=== PATIENT | male | born 1945 | race Caucasian/White ===

== ENCOUNTER 2020-09-20 08:09 | Outpatient (REF) | payer MEDICARE, SELFPAY ==
--- NOTE | 2020-09-20 | US_ITS ---
EXAMINATION: US ABDOMEN COMPLETE CLINICAL INFORMATION: Chronic hepatitis C. COMPARISON: Ultrasound abdomen complete 10/11/2018 and 10/12/2017. KUB 01/25/2010. CT abdomen 07/28/2008. TECHNIQUE: Real-time imaging of the abdominal viscera. FINDINGS: PANCREAS: Normal. ABDOMINAL AORTA: The abdominal aorta is of normal caliber. Atherosclerotic calcification of the distal abdominal aorta is noted. INFERIOR VENA CAVA: Visualized portions are normal. LIVER: The liver is coarse, heterogenous and echogenic without any focal lesion. No focal hepatic lesion. There is no intrahepatic biliary duct dilatation seen. GALLBLADDER: There is echogenic debris seen in the decubitus view. No echogenic stones seen. There is no evidence of polyps, wall thickening or pericholecystic fluid collection. The gallbladder is physiologically well distended. COMMON BILE DUCT: Normal in caliber measuring 0.3 cm in diameter. RIGHT KIDNEY: Normal. No hydronephrosis. No renal calculi or focal parenchymal lesions. The kidney measures 11.0 cm in maximum dimension. LEFT KIDNEY: No hydronephrosis or focal parenchymal lesions. The kidney measures 11.0 cm in maximum dimension. There is echogenic stone in midpole measuring 0.2 x 0.3 x 0.1 cm. SPLEEN: Normal. The spleen measures 10.5 cm in maximum dimension. FREE FLUID: None. US/US abdomen complete IMPRESSION: Coarse heterogeneous echogenic liver texture. No focal lesions seen. There is echogenic gallbladder debris in the decubitus view but no echogenic stones or wall thickening. Small echogenic nonobstructive stone midpole left kidney. Mild atherosclerotic changes distal abdominal aorta. No aneurysm seen.
[2020-09-20 11:12] LABS: MANUAL DIFF FLAG NO
[2020-09-20 11:22] LABS: Basophils Percent Auto 0.4 % (0-2); Eosinophils Absolute Auto 0.2 X10*3/uL (0.0-0.4); Eosinophils Percent Auto 2.4 % (0-4); Hematocrit 41.8 % (42-52); Hemoglobin 13.9 g/dl (14.0-18.0); Imm Gran Abs Auto 0.01 X10*3/uL (0.00-0.03); Imm Gran Pct Auto 0.1 % (0.0-0.4); Lymphocytes Absolute Auto 1.8 X10*3/uL (1.2-4.9); Lymphocytes Percent Auto 26.9 % (20-40); Mean Corpuscular HGB Conc 33.3 g/dl (31.0-36.0); Mean Corpuscular Hemoglobin 31.1 pg (27.0-33.0); Mean Corpuscular Volume 93.5 fL (80-98); Mean Platelet Volume 11.6 fL (9.4-12.4); Monocytes Absolute Auto 0.5 X10*3/uL (0.1-1.2); Monocytes Percent Auto 7.4 % (2-11); Neutrophils Absolute Auto 4.2 X10*3/uL (2.0-8.3); Neutrophils Percent Auto 62.8 % (45-73); Platelet Count 180 X10*3/uL (160-400); Red Blood Count 4.47 X10*6/uL (4.60-5.80); White Blood Count 6.7 X10*3/uL (4.8-10.8)
[2020-09-20 11:31] LABS: INTERNATIONAL NORM RATIO 1.1 (0.9-1.1)
[2020-09-20 11:42] LABS: Alanine Aminotransferase 10 U/L (0-40); Albumin Level 4.2 g/dL (3.5-5.0); Alkaline Phosphatase 51 U/L (39-117); Aspartate Amino Transferase 14 U/L (5-37); Bilirubin Direct 0.3 mg/dL (0.0-0.5); Bilirubin Total 0.6 mg/dL (0.0-1.0); Total Protein 6.8 g/dL (6.5-8.0)
[2020-09-21 12:57] LABS: Alpha Fetoprotein 1.9 ng/mL (<6.1)
[2020-11-07 12:07] LABS: HepC Viral Load <15 NOT DETECTED
[2020-11-07 12:08] LABS: HCV Log PCR <1.18 NOT DETECTED
== END 2020-09-20 08:10 | disposition home or self-care (01) ==
LOC: HO.HMGCX 08:09
PROVIDERS: PCP Internal Medicine; Visit Provider Internal Medicine
DX: B18.2 Chronic viral hepatitis C (principal)
CPT/HCPCS: 36415; 76700; 80076; 82105; 85025; 85610; 87522

== ENCOUNTER 2020-10-24 08:13 | Outpatient (REF) | payer MEDICARE, SELFPAY ==
[2020-10-24 11:06] LABS: MANUAL DIFF FLAG NO
[2020-10-24 11:08] LABS: Urine Cytology See Pathology rpt
[2020-10-24 11:20] LABS: Basophils Percent Auto 0.4 % (0-2); Eosinophils Absolute Auto 0.2 X10*3/uL (0.0-0.4); Eosinophils Percent Auto 2.8 % (0-4); Hematocrit 42.5 % (42-52); Hemoglobin 14.2 g/dl (14.0-18.0); Imm Gran Abs Auto 0.03 X10*3/uL (0.00-0.03); Imm Gran Pct Auto 0.4 % (0.0-0.4); Lymphocytes Absolute Auto 2.1 X10*3/uL (1.2-4.9); Lymphocytes Percent Auto 28.2 % (20-40); Mean Corpuscular HGB Conc 33.4 g/dl (31.0-36.0); Mean Corpuscular Hemoglobin 31.2 pg (27.0-33.0); Mean Corpuscular Volume 93.4 fL (80-98); Mean Platelet Volume 11.2 fL (9.4-12.4); Monocytes Absolute Auto 0.6 X10*3/uL (0.1-1.2); Monocytes Percent Auto 8.1 % (2-11); Neutrophils Absolute Auto 4.4 X10*3/uL (2.0-8.3); Neutrophils Percent Auto 60.1 % (45-73); Platelet Count 184 X10*3/uL (160-400); Red Blood Count 4.55 X10*6/uL (4.60-5.80); White Blood Count 7.3 X10*3/uL (4.8-10.8)
[2020-10-24 11:24] LABS: Glucose Urine UA NEG (NEG); Leukocyte Esterase Urine NEG (NEG); Nitrite Urine NEG (NEG); Specific Gravity - Urine 1.015 (1.005-1.025); Urine Blood NEG (NEG); Urine Ketones NEG (NEG); Urine Protein NEG (NEG-TRACE)
[2020-10-24 11:25] LABS: Appearance Urine CLEAR; Color Urine YELLOW
[2020-10-24 11:56] LABS: Alanine Aminotransferase 11 U/L (0-40); Albumin Level 4.3 g/dL (3.5-5.0); Alkaline Phosphatase 49 U/L (39-117); Anion Gap 11 (12-20); Aspartate Amino Transferase 18 U/L (5-37); Bilirubin Total 0.8 mg/dL (0.0-1.0); Blood Urea Nitrogen 12 mg/dL (9-16); Calcium 9.1 mg/dL (8.4-10.2); Carbon Dioxide 30 mmol/L (22-29); Chloride 101 mmol/L (96-108); Estimated Glomerular Filt Rate > 60; Glucose Random 94 mg/dL (60-115); Potassium 4.6 mmol/L (3.3-5.1); Sodium 137 mmol/L (135-145); Total Protein 7.1 g/dL (6.5-8.0)
[2020-10-24 12:00] LABS: Prostate Specific Antigen 0.88 ng/mL (<0.05-4.0); Vitamin D 25-OH Total 30.7 ng/mL (>30)
== END 2020-10-24 08:14 | disposition home or self-care (01) ==
LOC: HO.HMGCLDS 08:13
PROVIDERS: PCP Internal Medicine; Visit Provider Internal Medicine
DX: I10 Essential (primary) hypertension (principal); R35.0 Frequency of micturition; E55.9 Vitamin D deficiency, unspecified; Z12.5 Encounter for screening for malignant neoplasm of prostate
CPT/HCPCS: 36415; 80053; 81003; 82306; 84153; 85025

== ENCOUNTER 2020-12-19 11:07 | Outpatient (REF) | payer MEDICARE, SELFPAY ==
[2020-12-23 09:23] LABS: Testosterone, Total 308 ng/dL (250-1100)
== END 2020-12-19 11:08 | disposition home or self-care (01) ==
LOC: HO.HMGCLDS 11:07
PROVIDERS: PCP Internal Medicine; Visit Provider Urology
DX: E29.1 Testicular hypofunction (principal)
CPT/HCPCS: 36415; 84403

== ENCOUNTER → 2021-01-15 09:31 | Outpatient (BNVA) | payer MEDICARE, SELFPAY | PROVIDERS: PCP Internal Medicine; Visit Provider Urology | DX: E29.1 Testicular hypofunction (principal); N40.1 Benign prostatic hyperplasia with lower urinary tract symptoms; N52.9 Male erectile dysfunction, unspecified | CPT/HCPCS: Q3014 ==

== ENCOUNTER 2021-01-31 10:54 | Outpatient (REF) | payer MEDICARE, SELFPAY ==
--- NOTE | ~2021-01-31 | US_ITS ---
EXAMINATION: US PELVIS LIMITED (BLADDER) CLINICAL INFORMATION: Poor urinary stream. COMPARISON: X-ray abdomen KUB 01/25/2010. TECHNIQUE: Real-time imaging of the bladder. FINDINGS: BLADDER: Well distended and normal. Bilateral ureteral jets are demonstrated. Prevoid bladder volume is 389 mL. Postvoid bladder volume is 24.2 mL. Enlarged prostate, 6.3 x 4.1 x 4.7 cm, volume 64.1 mL. US/US bladder IMPRESSION: Normal bladder ultrasound. Slightly enlarged prostate gland.
== END 2021-01-31 10:55 | disposition home or self-care (01) ==
LOC: HO.US 10:54
PROVIDERS: Visit Provider Urology
DX: R39.12 Poor urinary stream (principal); N40.1 Benign prostatic hyperplasia with lower urinary tract symptoms
CPT/HCPCS: 76857

== ENCOUNTER 2021-09-25 14:00 | Outpatient (RCR) | payer MEDICARE, SELFPAY ==
--- NOTE | 2021-08-14 17:27 | MHC.PT.EP ---
[facility] [place] [facility] [place] [facility] [place] [facility] [address] Radha Nolan [address] [phone] F: [phone] F: [phone] F: [phone] F: [phone] Physical Therapy Plan of Care Date of Evaluation: Date of Surgery: N/A Diagnosis: leg weakness Assessment: pt w/ negative neurological testing. Symptoms appear to be muscular in nature. pt presents to physical therapy with pain, decreased range of motion, decreased strength, impaired functional mobility, impaired postural awareness, and gait deviations. pt is a good candidate for skilled PT due to age, potential remediation of impairments, typical disease/condition progression and prognosis, comorbidities, and motivation. pt would benefit from tailored strengthening and stretching exercise program, functional training, gait training, postural re-training, neuromuscular re-education, modalities as needed for pain, equipment safety demonstration. Frequency and Duration: The patient will be seen 2x/wk for 4 wks Short Term Goals: pt will be I w/ HEP to promote self-management of condition. pt will improve B hip extension by 1 MMT grade to promote ease in standing from squat position. Surgery Assistant Goals: pt will report a statistically significant improvement in self-reported outcome measure, LEFI, to promote return to PLOF. Treatment Plan: Modalities to reduce pain, spasms and effusion. Manual therapy to restore motion and function. Therapeutic exercise to improve strength and flexibility. Neuromuscular re-education for posture and balance. Therapeutic activities to return to functional activities of daily living. Electronically signed by: Nel Marin PT, DPT Please sign and return to therapist. Thank you for your referral.
--- NOTE | 2021-09-30 15:52 | MHC.PT.DC ---
[facility] [place] [facility] [place] [facility] [place] [facility] [address] Radha Nolan [address] [facility] [phone] F: [phone] F: [phone] F: [phone] F: [phone] Physical Therapy Discharge Report Diagnosis: leg weakness Date of Surgery: N/A Date of Evaluation: 08/14/21 Date of Discharge: 09/30/21 Treatments to Date: 7 Cancellations to Date: 0 No Shows to Date: 0 Discharge Status: Improved Function Independent with HEP Discharge Summary: The patient reported he will be away for the next 4 weeks which is longer than we will be able to keep his chart open so today will be his last visit. He has made significant progress in regards to his ability to tolerate higher level strengthening exercises. At this time I recommended he continue with his home exercise program and told him he would benefit from going to a gym to maintain his gains. He is discharged from this physical therapy plan of care to his home exercise program. Electronically signed by: Nel Marin PT, DPT Please sign and return to therapist. Thank you for your referral.
== END 2021-09-30 15:52 | disposition home or self-care (01) ==
LOC: HO.PT 14:00
PROVIDERS: PCP Internal Medicine; Visit Provider Psychiatry & Neurology Neurology
DX: M62.81 Muscle weakness (generalized) (principal)
CPT/HCPCS: 97110; 97150; 97161; 97530

== ENCOUNTER 2022-03-19 07:13 | Outpatient (REF) | payer MEDICARE, SELFPAY ==
[2022-03-19 08:36] LABS: Basophils Percent Auto 0.4 % (0-2); Eosinophils Absolute Auto 0.2 X10*3/uL (0.0-0.4); Eosinophils Percent Auto 2.9 % (0-4); Hematocrit 41.9 % (42.0-52.0); Hemoglobin 14.2 g/dl (14.0-18.0); Imm Gran Abs Auto 0.02 X10*3/uL (0.00-0.03); Imm Gran Pct Auto 0.3 % (0.0-0.4); Lymphocytes Absolute Auto 2.2 X10*3/uL (1.2-4.9); Lymphocytes Percent Auto 31.1 % (20-40); MANUAL DIFF FLAG SCAN; Mean Corpuscular HGB Conc 33.9 g/dl (31.0-36.0); Mean Corpuscular Hemoglobin 30.8 pg (27.0-33.0); Mean Corpuscular Volume 90.9 fL (80.0-98.0); Mean Platelet Volume 12.1 fL (9.4-12.4); Monocytes Absolute Auto 0.6 X10*3/uL (0.1-1.2); Monocytes Percent Auto 9.1 % (2-11); Neutrophils Absolute Auto 3.9 x10*3/uL (2.0-8.3); Neutrophils Percent Auto 56.2 % (45-73); PLT CLUMP 1; Red Blood Count 4.61 X10*6/uL (4.60-5.80); Red Cell Distribution Width 12.3 % (11.0-16.0); SCAN SMEAR FLAG 1
[2022-03-19 08:56] LABS: Alanine Aminotransferase 11 U/L (0-40); Albumin Level 4.2 g/dL (3.5-5.0); Alkaline Phosphatase 44 U/L (39-117); Anion Gap 11 (12-20); Aspartate Amino Transferase 17 U/L (5-37); Bilirubin Total 0.6 mg/dL (0.0-1.0); Blood Urea Nitrogen 15 mg/dL (9-16); Calcium 9.1 mg/dL (8.4-10.2); Carbon Dioxide 25 mmol/L (22-29); Chloride 105 mmol/L (96-108); Cholesterol 158 mg/dL; Estimated Glomerular Filt Rate > 60; Glucose Fasting 93 mg/dL (60-99); HDL Cholesterol 53 mg/dL; LDL Cholesterol Calculated 93 mg/dl; Potassium 4.7 mmol/L (3.3-5.1); Sodium 136 mmol/L (135-145); Triglycerides 64 mg/dL
[2022-03-19 08:59] LABS: White Blood Count 6.9 X10*3/uL (4.8-10.8)
[2022-03-19 09:00] LABS: Platelet Count 95 X10*3/uL (160-400)
[2022-03-19 09:18] LABS: Thyroid Stimulating Hormone 2.16 uIU/mL (0.32-4.0); Vitamin D 25-OH Total 32.1 ng/mL (>30)
[2022-03-19 12:05] LABS: SLIDE REVIEW VERIFIED
== END 2022-03-19 07:14 | disposition home or self-care (01) ==
LOC: HO.LAB 07:13
PROVIDERS: PCP Internal Medicine; Visit Provider Internal Medicine
DX: I10 Essential (primary) hypertension (principal); R35.0 Frequency of micturition; E55.9 Vitamin D deficiency, unspecified
CPT/HCPCS: 36415; 80053; 80061; 82306; 84443; 85025

== ENCOUNTER 2022-03-27 07:33 | Outpatient (REF) | payer MEDICARE, SELFPAY ==
[2022-03-27 07:46] LABS: MANUAL DIFF FLAG NO
[2022-03-27 07:59] LABS: Basophils Percent Auto 0.6 % (0-2); Eosinophils Absolute Auto 0.2 X10*3/uL (0.0-0.4); Eosinophils Percent Auto 2.8 % (0-4); Hematocrit 41.4 % (42.0-52.0); Imm Gran Abs Auto 0.03 X10*3/uL (0.00-0.03); Imm Gran Pct Auto 0.4 % (0.0-0.4); Lymphocytes Absolute Auto 2.5 X10*3/uL (1.2-4.9); Lymphocytes Percent Auto 34.1 % (20-40); Mean Corpuscular HGB Conc 33.8 g/dl (31.0-36.0); Mean Corpuscular Volume 91.8 fL (80.0-98.0); Mean Platelet Volume 10.1 fL (9.4-12.4); Monocytes Absolute Auto 0.7 X10*3/uL (0.1-1.2); Monocytes Percent Auto 9.2 % (2-11); Neutrophils Absolute Auto 3.8 x10*3/uL (2.0-8.3); Neutrophils Percent Auto 52.9 % (45-73); Platelet Count 175 X10*3/uL (160-400); Red Blood Count 4.51 X10*6/uL (4.60-5.80); Red Cell Distribution Width 12.2 % (11.0-16.0); White Blood Count 7.2 X10*3/uL (4.8-10.8)
== END 2022-03-27 07:34 | disposition home or self-care (01) ==
LOC: HO.LAB 07:33
PROVIDERS: PCP Internal Medicine; Visit Provider Internal Medicine
DX: D69.6 Thrombocytopenia, unspecified (principal)
CPT/HCPCS: 36415; 85025

== ENCOUNTER 2022-10-08 07:18 | Outpatient (REF) | payer MEDICARE, SELFPAY ==
[2022-10-08 07:29] LABS: MANUAL DIFF FLAG NO
[2022-10-08 08:20] LABS: Basophils Percent Auto 0.5 % (0-2); Eosinophils Absolute Auto 0.2 X10*3/uL (0.0-0.4); Eosinophils Percent Auto 2.8 % (0-4); Hematocrit 43.5 % (42.0-52.0); Hemoglobin 14.5 g/dl (14.0-18.0); Imm Gran Abs Auto 0.04 X10*3/uL (0.00-0.03); Imm Gran Pct Auto 0.7 % (0.0-0.4); Lymphocytes Absolute Auto 2.2 X10*3/uL (1.2-4.9); Lymphocytes Percent Auto 36.4 % (20-40); Mean Corpuscular HGB Conc 33.3 g/dl (31.0-36.0); Mean Corpuscular Hemoglobin 30.5 pg (27.0-33.0); Mean Corpuscular Volume 91.4 fL (80.0-98.0); Mean Platelet Volume 10.2 fL (9.4-12.4); Monocytes Absolute Auto 0.5 X10*3/uL (0.1-1.2); Monocytes Percent Auto 8.3 % (2-11); Neutrophils Absolute Auto 3.1 x10*3/uL (2.0-8.3); Neutrophils Percent Auto 51.3 % (45-73); Platelet Count 199 X10*3/uL (160-400); Red Blood Count 4.76 X10*6/uL (4.60-5.80); Red Cell Distribution Width 12.1 % (11.0-16.0)
[2022-10-08 08:25] LABS: Alanine Aminotransferase 13 U/L (0-40); Albumin Level 4.3 g/dL (3.5-5.0); Alkaline Phosphatase 50 U/L (39-117); Anion Gap 15 (12-20); Aspartate Amino Transferase 17 U/L (5-37); Bilirubin Total 0.9 mg/dL (0.0-1.0); Blood Urea Nitrogen 16 mg/dL (9-16); Calcium 9.5 mg/dL (8.4-10.2); Carbon Dioxide 29 mmol/L (22-29); Chloride 102 mmol/L (96-108); Estimated Glomerular Filt Rate > 60; Glucose Random 105 mg/dL (60-115); Potassium 4.5 mmol/L (3.3-5.1); Sodium 141 mmol/L (135-145); Total Protein 7.3 g/dL (6.5-8.0)
== END 2022-10-08 07:19 | disposition home or self-care (01) ==
LOC: HO.LAB 07:18
PROVIDERS: PCP Internal Medicine; Visit Provider Internal Medicine
DX: I10 Essential (primary) hypertension (principal); R35.0 Frequency of micturition; E55.9 Vitamin D deficiency, unspecified
CPT/HCPCS: 36415; 80053; 85025

== ENCOUNTER 2022-11-12 13:59 | Outpatient (REF) | payer MEDICARE, SELFPAY ==
[2022-11-14 15:33] LABS: HCV Log PCR <1.18 NOT DETECTED Log IU/mL (NOT DETECTED); HepC Viral Load <15 NOT DETECTED IU/mL (NOT DETECTED)
== END 2022-11-12 14:00 | disposition home or self-care (01) ==
LOC: HO.LAB 13:59
PROVIDERS: PCP Internal Medicine; Visit Provider Internal Medicine
DX: B18.2 Chronic viral hepatitis C (principal)
CPT/HCPCS: 36415; 82105; 87522

== ENCOUNTER 2022-12-25 08:14 | Outpatient (REF) | payer MEDICARE, SELFPAY ==
--- NOTE | ~2022-12-25 | US_ITS ---
EXAMINATION: US COMPLETE ABDOMEN WITH LIVER ELASTOGRAPHY CLINICAL INFORMATION: Chronic hepatitis see COMPARISON: Previous abdominal ultrasound September 2013 TECHNIQUE: Real-time imaging of the abdominal viscera. Noninvasive ultrasound liver fibrosis assessment is performed using Jose Elast[employer] point quantification shear wave elastography (2D-SWE) with a C5-2 MHz transducer. Multiple elastography samples are obtained. FINDINGS: PANCREAS: Normal. ABDOMINAL AORTA: Atherosclerotic disease. The proximal, middle, and distal aortic segments are normal in caliber. INFERIOR VENA CAVA: Visualized portions are normal. LIVER: Liver echotexture is slightly increased. Liver is heterogeneous. Findings are suggestive of hepatocellular disease. No focal lesion or intrahepatic biliary duct dilatation. The right lobe measures 14 cm in length. The left lobe measures 8 cm in length. Portal flow is normal/hepatopedal Shear wave liver elastography median stiffness is 2 m/s (reference: normal median stiffness is 1.3 m/s or less). IQR/median stiffness to assess sampling precision is 0.11 (reference: good quality data set is IQR/median stiffness of 0.15 or less). GALLBLADDER: Normal. The gallbladder is physiologically distended without evidence of stones, sludge, polyps, wall thickening or pericholecystic fluid. COMMON BILE DUCT: Normal in caliber measuring 0.6 cm in diameter. RIGHT KIDNEY: Normal. No hydronephrosis. No renal calculi or focal parenchymal lesions. The kidney measures 10 cm in maximum dimension. LEFT KIDNEY: Normal. No hydronephrosis. No renal calculi or focal parenchymal lesions. The kidney measures 10 cm in maximum dimension. SPLEEN: Normal. The spleen measures 10 cm in maximum dimension. FREE FLUID: None. US/US abdomen comp w elastography IMPRESSION: 1. Impression: slightly echogenic heterogeneous liver suggestive of hepatocellular. No focal lesion. 2. Liver elastography: Adequate liver sampling increased liver stiffness suggestive of compensated advanced chronic liver disease. REFERENCE: Society of Radiologists in Ultrasound Liver Stiffness Thresholds (2020): LIVER STIFFNESS THRESHOLDS: *Liver Stiffness equal or less than 1.3 m/s: High probability of being normal. *Liver Stiffness less than 1.7 m/s: In the absence of other known clinical signs, rules out compensated advanced chronic liver disease. *Liver Stiffness 1.7-2.1 m/s: Suggestive of compensated advanced chronic liver disease but need further test for confirmation. *Liver Stiffness over 2.1 m/s: Rules in compensated advanced chronic liver disease. *Liver Stiffness over 2.4 m/s: Suggestive of clinically significant portal hypertension. QUALITY OF DATA SET: *IQR/Median value equal or less than 0.15 implies a quality data set. *IQR/Median value over 0.15 implies a poor quality data set. SIGNIFICANT CHANGE FROM PRIOR EXAM: Significant change if liver stiffness measurement is 10% or greater from prior exam. OTHER CONSIDERATIONS: The stage of liver fibrosis may be overestimated in the setting of acute hepatitis, liver inflammation, elevated liver function tests, hepatic vascular congestion, obstructive cholestasis, non-fasting state, and infiltrative diseases such as amyloidosis and lymphoma. In some patients with NAFLD, the liver stiffness thresholds for compensated advanced chronic liver disease may be lower. In causes other than viral hepatitis and NAFLD, liver stiffness thresholds are not well established.
== END 2022-12-25 08:15 | disposition home or self-care (01) ==
LOC: HO.US 08:14
PROVIDERS: PCP Internal Medicine; Visit Provider Internal Medicine
DX: B18.2 Chronic viral hepatitis C (principal)
CPT/HCPCS: 76705; 76981

== ENCOUNTER 2024-01-11 06:49 | Outpatient (REF) | payer MEDICARE, SELFPAY ==
[2024-01-11 07:11] LABS: MANUAL DIFF FLAG NO
[2024-01-11 07:53] LABS: Basophils Percent Auto 0.5 % (0-2); Eosinophils Absolute Auto 0.2 X10*3/uL (0.0-0.4); Eosinophils Percent Auto 2.9 % (0-4); Hematocrit 39.7 % (42.0-52.0); Hemoglobin 13.7 g/dl (14.0-18.0); Imm Gran Abs Auto 0.02 X10*3/uL (0.00-0.03); Imm Gran Pct Auto 0.3 % (0.0-0.4); Lymphocytes Absolute Auto 2.1 X10*3/uL (1.2-4.9); Lymphocytes Percent Auto 35.7 % (20-40); Mean Corpuscular HGB Conc 34.5 g/dl (31.0-36.0); Mean Corpuscular Hemoglobin 31.1 pg (27.0-33.0); Mean Platelet Volume 10.4 fL (9.4-12.4); Monocytes Absolute Auto 0.6 X10*3/uL (0.1-1.2); Monocytes Percent Auto 9.6 % (2-11); Platelet Count 154 X10*3/uL (160-400); Red Blood Count 4.41 X10*6/uL (4.60-5.80); Red Cell Distribution Width 12.6 % (11.0-16.0)
[2024-01-11 08:41] LABS: PSA,Total (Free>4and<10) 1.22 ng/mL (0.00-4.00)
[2024-01-11 08:42] LABS: Microalbumin Urine < 5.0 mg/L
[2024-01-11 08:44] LABS: Alanine Aminotransferase 21 U/L (0-40); Albumin Level 4.2 g/dL (3.5-5.0); Alkaline Phosphatase 41 U/L (39-117); Anion Gap 12 (12-20); Aspartate Amino Transferase 24 U/L (5-37); Bilirubin Total 0.6 mg/dL (0.0-1.0); Blood Urea Nitrogen 14 mg/dL (9-16); Calcium 9.9 mg/dL (8.4-10.2); Carbon Dioxide 25 mmol/L (22-29); Chloride 107 mmol/L (96-108); Cholesterol 152 mg/dL (<200); Estimated Glomerular Filt Rate > 60; Glucose Fasting 97 mg/dL (60-99); HDL Cholesterol 53 mg/dL (>40); LDL Cholesterol Calculated 88 mg/dL (<100); Potassium 4.3 mmol/L (3.3-5.1); Sodium 140 mmol/L (135-145); Total Protein 7.3 g/dL (6.5-8.0); Triglycerides 55 mg/dL (<150)
[2024-01-11 08:45] LABS: Thyroid Stimulating Hormone 2.25 uIU/mL (0.32-4.0); Vitamin D 25-OH Total 35.3 ng/mL (>30)
[2024-01-11 09:16] LABS: Appearance Urine Clear; Color Urine Yellow; Glucose Urine UA Negative (Negative); Leukocyte Esterase Urine Negative (Negative); Nitrite Urine Negative (Negative); PH 6.5 (5.0-9.0); Urine Blood Negative (Negative); Urine Ketones Negative (Negative); Urine Protein Negative (Neg-Trace)
== END 2024-01-11 06:50 | disposition home or self-care (01) ==
LOC: HO.LAB 06:49
PROVIDERS: PCP Internal Medicine; Visit Provider Internal Medicine
DX: I10 Essential (primary) hypertension (principal); R35.0 Frequency of micturition; E55.9 Vitamin D deficiency, unspecified; Z12.5 Encounter for screening for malignant neoplasm of prostate
CPT/HCPCS: 36415; 80053; 80061; 81003; 82043; 82306; 82570; 84153; 84443; 85025

== ENCOUNTER 2024-02-20 08:21 | Outpatient (REF) | payer MEDICARE, SELFPAY ==
[2024-02-20 10:23] LABS: Prostate Specific Antigen 1.19 ng/mL (<0.05-4.0)
== END 2024-02-20 08:22 | disposition home or self-care (01) ==
LOC: HO.LAB 08:21
PROVIDERS: PCP Internal Medicine; Visit Provider Physician Assistant Surgical
DX: R97.20 Elevated prostate specific antigen [PSA] (principal); Z12.5 Encounter for screening for malignant neoplasm of prostate
CPT/HCPCS: 36415; 84153

== ENCOUNTER 2024-03-17 11:36 | Outpatient (REF) | payer MEDICARE, SELFPAY ==
[2024-03-18 12:43] LABS: Alpha Fetoprotein 2.5 ng/mL (<6.1)
[2024-03-19 14:58] LABS: HCV Log PCR <1.18 NOT DETECTED Log IU/mL (NOT DETECTED); HepC Viral Load <15 NOT DETECTED IU/mL (NOT DETECTED)
[2024-03-26 18:19] LABS: FIB-ALT 15 U/L (9-46); FIB-Alpha-2-Macroglobulin 319 mg/dL (106-279); FIB-Apolipoprotein A1 160 mg/dL (94-176); FIB-GGT 13 U/L (3-70); FIB-Haptoglobin 98 mg/dL (43-212); FIB-Total Bilirubin 0.4 mg/dL (0.2-1.2); Liver Fibrosis Score 0.47; Liver Fibrosis Stage F1-F2; Nec Inflam Act Grade A0; Nec Inflam Act Score 0.06
== END 2024-03-17 11:37 | disposition home or self-care (01) ==
LOC: HO.LAB 11:36
PROVIDERS: PCP Internal Medicine; Visit Provider Internal Medicine
DX: K74.00 Hepatic fibrosis, unspecified (principal); B18.2 Chronic viral hepatitis C
CPT/HCPCS: 36415; 81596; 82105; 87522

== ENCOUNTER 2024-03-21 08:25 | Outpatient (REF) | payer MEDICARE, SELFPAY ==
--- NOTE | ~2024-03-21 | US_ITS ---
EXAMINATION: US COMPLETE ABDOMEN WITH LIVER ELASTOGRAPHY CLINICAL INFORMATION: Chronic hepatitis C; liver fibrosis. COMPARISON: None available. TECHNIQUE: Real-time imaging of the abdominal viscera. Noninvasive ultrasound liver fibrosis assessment is performed using Jose ElastPQ point quantification shear wave elastography (2D-SWE) with a C5-2 MHz transducer. Multiple elastography samples are obtained. FINDINGS: PANCREAS: Limited. The visualized pancreatic head and body are normal in appearance. The remainder of the pancreas is obscured from visualization by the overlying bowel gas. ABDOMINAL AORTA: The proximal, middle, and distal aortic segments are normal in caliber. There are diffuse atherosclerotic calcifications. INFERIOR VENA CAVA: Visualized portions are normal. LIVER: The liver demonstrates normal size, contour and echogenicity. No focal lesion or intrahepatic biliary duct dilatation. The right lobe measures 15.3 cm in length. The left lobe measures 8.1 cm in length. Portal flow is towards the liver (hepatopetal). Shear wave liver elastography median stiffness is 1.80 m/s (reference: normal median stiffness is 1.3 m/s or less). IQR/median stiffness to assess sampling precision is 0.08 (reference: good quality data set is IQR/median stiffness of 0.15 or less). GALLBLADDER: Normal. The gallbladder is physiologically distended without evidence of stones, sludge, polyps, wall thickening or pericholecystic fluid. COMMON BILE DUCT: Normal in caliber measuring 0.4 cm in diameter. RIGHT KIDNEY: Normal. No hydronephrosis. No renal calculi or focal parenchymal lesions. The kidney measures 10.8 cm in maximum dimension. LEFT KIDNEY: Normal. No hydronephrosis. No renal calculi or focal parenchymal lesions. The kidney measures 10.7 cm in maximum dimension. SPLEEN: Normal. The spleen measures 9.5 cm in maximum dimension. FREE FLUID: None. US/US abdomen comp w elastography IMPRESSION: 1. There is mild increase in hepatic echotexture, consistent with fatty infiltration or hepatocellular disease. Please correlate clinically. No focal hepatic mass or intrahepatic biliary dilatation is seen. 2. Liver elastography: Measurements are suggestive of compensated advanced chronic liver disease but need further test for confirmation. When compared with prior exam, there is a statistically significant decrease in liver stiffness (decrease at least 10%). REFERENCE: Society of Radiologists in Ultrasound Liver Stiffness Thresholds (2020): LIVER STIFFNESS THRESHOLDS: *Liver Stiffness equal or less than 1.3 m/s: High probability of being normal. *Liver Stiffness less than 1.7 m/s: In the absence of other known clinical signs, rules out compensated advanced chronic liver disease. *Liver Stiffness 1.7-2.1 m/s: Suggestive of compensated advanced chronic liver disease but need further test for confirmation. *Liver Stiffness over 2.1 m/s: Rules in compensated advanced chronic liver disease. *Liver Stiffness over 2.4 m/s: Suggestive of clinically significant portal hypertension. QUALITY OF DATA SET: *IQR/Median value equal or less than 0.15 implies a quality data set. *IQR/Median value over 0.15 implies a poor quality data set. SIGNIFICANT CHANGE FROM PRIOR EXAM: Significant change if liver stiffness measurement is 10% or greater from prior exam. OTHER CONSIDERATIONS: The stage of liver fibrosis may be overestimated in the setting of acute hepatitis, liver inflammation, elevated liver function tests, hepatic vascular congestion, obstructive cholestasis, non-fasting state, and infiltrative diseases such as amyloidosis and lymphoma. In some patients with NAFLD, the liver stiffness thresholds for compensated advanced chronic liver disease may be lower. In causes other than viral hepatitis and NAFLD, liver stiffness thresholds are not well established.
== END 2024-03-21 08:26 | disposition home or self-care (01) ==
LOC: HO.US 08:25
PROVIDERS: PCP Internal Medicine; Visit Provider Internal Medicine
DX: B18.2 Chronic viral hepatitis C (principal); K74.00 Hepatic fibrosis, unspecified
CPT/HCPCS: 76700; 76981

== ENCOUNTER 2024-07-16 10:02 | Outpatient (REF) | payer MEDICARE, SELFPAY ==
[2024-07-16 10:13] LABS: MANUAL DIFF FLAG NO
[2024-07-16 10:40] LABS: Basophils Percent Auto 0.6 % (0-2); Eosinophils Absolute Auto 0.2 X10*3/uL (0.0-0.4); Eosinophils Percent Auto 2.8 % (0-4); Hemoglobin 13.8 g/dl (14.0-18.0); Imm Gran Abs Auto 0.01 X10*3/uL (0.00-0.03); Imm Gran Pct Auto 0.1 % (0.0-0.4); Lymphocytes Absolute Auto 2.2 X10*3/uL (1.2-4.9); Lymphocytes Percent Auto 29.8 % (20-40); Mean Corpuscular HGB Conc 34.5 g/dl (31.0-36.0); Mean Corpuscular Hemoglobin 31.7 pg (27.0-33.0); Mean Corpuscular Volume 91.7 fL (80.0-98.0); Mean Platelet Volume 10.4 fL (9.4-12.4); Monocytes Absolute Auto 0.7 X10*3/uL (0.1-1.2); Monocytes Percent Auto 9.4 % (2-11); Neutrophils Absolute Auto 4.2 x10*3/uL (2.0-8.3); Neutrophils Percent Auto 57.3 % (45-73); Platelet Count 176 X10*3/uL (160-400); Red Blood Count 4.36 X10*6/uL (4.60-5.80); Red Cell Distribution Width 12.2 % (11.0-16.0); White Blood Count 7.3 X10*3/uL (4.8-10.8)
== END 2024-07-16 10:03 | disposition home or self-care (01) ==
LOC: HO.LAB 10:02
PROVIDERS: PCP Internal Medicine; Visit Provider Internal Medicine
DX: I10 Essential (primary) hypertension (principal)
CPT/HCPCS: 36415; 85025

== ENCOUNTER 2024-10-19 11:00 | Outpatient (RCR) | payer MEDICARE, SELFPAY | END 2024-11-17 10:49 | disposition home or self-care (01) | LOC: HO.PTCHIC 11:00 | PROVIDERS: PCP Internal Medicine; Visit Provider Internal Medicine | DX: S16.1XXD Strain of muscle, fascia and tendon at neck level, subsequent encounter (principal) | CPT/HCPCS: 97110; 97140; 97161 ==

== ENCOUNTER 2025-01-31 13:39 | Outpatient (AMB) | payer MEDICARE, SELFPAY ==
--- NOTE | 2025-01-31 13:45 | MHC.PC.OV ---
Vital Signs 01/31/25 13:47 Weight 152 lb BP 138/80 Blood Pressure Location Rt brachial Pulse 65 Pulse Source Pulse Oximeter Temp 97.5 F Pulse Oximetry (%) 97 Intake Visit Reasons: 6 month follow up Intake Note: Hard time when he gets down on the floor and to get up, lower back hurts and feels sleep all the time or when he tries to read something he finds himself falling asleep. Allergies No Known Allergies [No Known Allergies*] Allergy (Unknown, Verified 01/31/25 15:28) Medication List - Last Reconciled 01/31/25 by Claudine Maya PA-C amlodipine 5 mg PO DAILY aspirin 81 mg PO DAILY cholecalciferol (vitamin D3) 50 mcg PO DAILY losartan 100 mg PO DAILY [id number] mcg (Centrum Silver Men) 1 tab PO DAILY naproxen 500 mg PO BID naproxen 500 mg PO BID sulfacetamide sodium 10% 1 drp ophthalmic (eye) Q4H tadalafil (Cialis) 20 mg PO DAILY tamsulosin 0.8 mg (2 x 0.4 mg) PO DAILY valsartan 160 mg PO DAILY HPI 6 month follow up HPI Details The patient is a 79-year-old male presenting with bilateral leg weakness during his six-month follow-up appointment and establishment of care. The patient's leg weakness has progressively worsened over the past year, with symptoms initially appearing three years ago. He can walk and stand without difficulty but requires assistance to rise from the floor, denying the use of mobility aids such as walkers or canes. He does not report falls, numbness, tingling, or dizziness. Although he mentions C2-C3 cervical arthrosis occasionally causing neck discomfort, it does not seem directly related to the leg weakness. Past consultations with a neurologist two years ago involved diagnostic testing and therapy for leg strength, and he continues with exercises focused on bone and balance maintenance. He maintains functional activity levels by participating in routine physical therapy sessions and engaging with his young grandson. The patient reports low energy levels manifesting as sleepiness during periods of rest rather than activity, and denies any familial history of neurodegenerative diseases. His medical history is noted with hypertension and chronic hepatitis C, now in remission. Additionally, there's a current management plan for urological incontinence, overseen by a urologist. There is no recent imaging of the spine or brain noted. Social History - The patient resides in a house likely with family given the mention of engaging with a grandson. - He maintains active participation in physical therapy twice a week at the [facility] focusing on balance and bones. - Engages in playful interaction with his [id number] grandson regularly. - Nutritional intake includes breakfast with oatmeal, flaxseed, amy seeds, shredded coconut, and almond milk, consumed routinely. - Blood pressure monitoring is a self-reported home practice, showing awareness and management of hypertension. [facility] Medical History (Updated 01/31/25 @ 16:14 by Claudine Maya PA-C) Urinary incontinence Anemia Establishing care with new doctor, encounter for Bilateral leg weakness Back pain Herpes zoster without complications Appendicitis Carcinoid (except of appendix) Chronic hepatitis HTN (hypertension) Hypogonadism in male Erectile dysfunction Other obstructive and reflux uropathy Benign prostatic hyperplasia with lower urinary tract symptoms Surgical History H/O right hemicolectomy H/O hernia repair [place] teeth removed History of appendectomy History of vasectomy History of surgery Questionnaire PHQ-9 Over the last 2 weeks, how often have you been bothered by any of the following problems? 1. Little interest or pleasure in doing things: not at all 2. Feeling down, depressed, or hopeless: not at all 3. Trouble falling or staying asleep, or sleeping too much: not at all 4. Feeling tired or having little energy: several days 5. Poor appetite or overeating: not at all 6. Feeling bad about yourself - or that you are a failure or have let yourself or your family down: not at all 7. Trouble concentrating on things, such as reading the newspaper or watching television: several days 8. Moving or speaking so slowly that other people could have noticed. Or the opposite - being so fidgety or restless that you have been moving around a lot more than usual: not at all 9. Thoughts that you would be better off or of hurting yourself in some way: not at all Total score: 2 Depression Screening Interpretation: Negative Depression Screening Done: Yes 73372 - PHQ-9 Billing: Yes Source: Developed by Drs. Luca Rhodes, Baylee Kemp, Jose Roberto Glass and colleagues, with an educational susie from [employer]. Thrive Questionnaire Date Thrive assessed: 01/31/25 I am a: Patient What is your living situation today?: I have a steady place to live Within the past 12 months, did the food you bought not last and you didn't have the money to get more?: Never true Within the past 12 months, did you worry whether your food would run out before you got money to buy more?: Never true Do you have trouble paying for medicines?: No Do you have trouble getting transportation to medical appointments?: No Do you have trouble paying your heating and electricity bill?: No Do you have trouble taking care of your child, family member or friend?: No Do you have trouble with day-to-day activities such as bathing, preparing meals, shopping, managing finances, etc.?: No Are you currently unemployed and looking for a job?: No Are you interested in more education?: No THRIVE Score: 0 AUDIT C Alcohol Use Questionnaire (AUDIT-C) 2. How many drinks containing alcohol do you have on a typical day when you are drinking?: 1 or 2 3. How often do you have six or more drinks on one occasion?: Never Total Score: 0 Score Reviewed/Action Taken: No MEL-7 AMB Questionnaire MEL-7 Date MEL - 7 assessed: 01/31/25 Feeling nervous, anxious, or on edge: 0 = Not at all Not being able to stop or control worryin = Not at all Worrying too much about different things: 0 = Not at all Trouble relaxin = Not at all Being so restless that it is hard to sit still: 0 = Not at all Becoming easily annoyed or irritable: 1 = Several days Feeling afraid as if something awful might happen: 0 = Not at all Total MEL-7 score (0-4 normal; 5-9 mild; 10-14 moderate; 15-21 severe): 1 Source: Developed by Drs. Luca Rhodes, Baylee Kemp, Jose Roberto Glass and colleagues, with an educational susie from [employer]. MEL-7 Assessment Billing MEL-7 Assessment Tool: MEL-7 Assessment 89608 Review of Systems Const Details: - Musculoskeletal: Reports bilateral leg weakness. - Neurological: Denies falls, numbness, tingling, and dizziness. - Cardiovascular: Denies chest pain and shortness of breath. - Gastrointestinal: Denies belly pain and involuntary urination or defecation. - General: Reports sleepiness during periods of rest. Physical exam (Primary Care) Vital Signs: Last Vital Signs Temp 97.5 F 01/31/25 13:47 Pulse 65 01/31/25 13:47 BP 142/64 H 01/31/25 13:47 Pulse Ox 97 01/31/25 13:47 Care Plan Goal for BP management: <140/90 at Goal PHQ-9: PHQ-9 Score PHQ-9: Total score 2 01/31/25 13:58 Depression Screening Interpretation: Negative Thrive Assessment: Date of Thrive Assessment Date Thrive assessed 01/31/25 01/31/25 13:58 Const Other: Appearance: Alert. Oriented X3. No acute distress. Head: Normal external exam. Normocephalic. Atraumatic. Eyes: Pupils are equal, round, and reactive to light. Extraocular movements intact. Conjunctiva and sclera normal. Eyelids normal. Ears: External auditory canal normal. Tympanic membranes normal. Throat: Pharynx normal. Uvula midline. Moist mucous membranes. Neck: Normal inspection. Neck supple. Full range of motion. No adenopathy. Thyroid Normal. No meningeal signs. No neck mass noted. Cardiovascular: Normal heart rate and rhythm. Heart sound normal. No murmurs noted. Pulses normal throughout. Blood pressure recorded as 138/80. Respiratory: No respiratory distress. Painless inspiration. Breath sounds normal. No wheezes/rales/rhonchi noted. Chest nontender. No accessory muscle usage noted or decreased air movement noted. Abdomen: Soft and nontender. Bowel sounds normal in all 4 quadrants. No distention noted. No organomegaly noted. No visible injury noted. Back: No costovertebral angle tenderness. Full range of motion noted. Reports occasional pain associated with president financial institution syndrome. Skin: Skin warm and dry. Normal skin color. Normal skin turgor. No rashes/lesions/lacerations noted. Extremities: No lower extremity edema. Extremities exhibit normal range of motion. Extremities nontender. Reports bilateral leg weakness, especially when getting up from the floor. Neuro: Oriented X 3. No motor deficit. No sensory deficit. Reflexes normal. Reports weakness in both legs, especially when getting up from the floor. Although no obvious weakness on exam he has 5/5 strength throughout to bilateral lower extremities and upper extremities. Normal sensation throughout. No numbness or tingling noted. Reports C2-C3 arthritis. Normal steady gait. Results Reviewed Results Reviewed: - Labs: None discussed during this visit; previous history notes anemia. - Tests: Previous neurology assessment with EMG testing for leg weakness. Coding Level of Care Code New Pt Level 4 (37915) Complex EM visit Add On G2211 Diagnoses Establishing care with new doctor, encounter for Z76.89 HTN (hypertension) I10 Bilateral leg weakness R29.898 Back pain M54.9 Erectile dysfunction N52.9 Anemia D64.9 Urinary incontinence R32 Additional Codes PHQ-9 - 43364 - PHQ-9 Billing: Yes ([id number]) MEL-7 Assessment Billing - MEL-7 Assessment Tool: MEL-7 Assessment 69410 ([id number]) Assessment & Plan Assessment & Plan (1) Establishing care with new doctor, encounter for: Code(s): Z76.89 - Persons encountering health services in other specified circumstances Category: Medical (2) HTN (hypertension): Code(s): I10 - Essential (primary) hypertension Category: Medical Plan: Patient to continue amlodipine 5 mg daily, aspirin 81 mg daily, losartan 100 mg daily, valsartan 160 mg daily. Continue home monitoring and medication. Follow-up for consistent control. (3) Bilateral leg weakness: Code(s): R29.898 - Other symptoms and signs involving the musculoskeletal system Category: Medical Plan: Conduct MRI of the lumbar spine to identify underlying causes. Continue physical therapy. Order blood work including metabolic panels and hormone levels. Patient has a normal neuro exam. Condition is chronic and stable will continue to monitor. (4) Back pain: Code(s): M54.9 - Dorsalgia, unspecified Category: Medical Plan: Will order MRI of lumbar spine to identify the underlying causes. Continue physical therapy. Patient has a normal neuro exam. Condition is chronic and stable continue to monitor. (5) Erectile dysfunction: Code(s): N52.9 - Male erectile dysfunction, unspecified Category: Medical Plan: Patient to continue Cialis. Condition is chronic and stable continue to monitor. (6) Anemia: Code(s): D64.9 - Anemia, unspecified Category: Medical Plan: Repeat iron studies and CBC to rule out anemia as a fatigue factor. (7) Urinary incontinence: Code(s): R32 - Unspecified urinary incontinence Category: Medical Plan: Continue management with current regimen and follow-up care with urologist. Plan Plan Patient was informed and verbally consented to the use of an ambient scribe for clinic note documentation during this visit. 1. Bilateral Leg Weakness Conduct MRI of the lumbar spine to identify underlying causes. Continue physical therapy. Order blood work including metabolic panels and hormone levels. 2. C2-C3 Cervical Arthrosis Monitor symptoms and manage pain as needed. No imaging unless symptoms change. 3. Hypertension Continue home monitoring and medication. Follow-up for consistent control. 4. Urological Incontinence Continue management with current regimen and follow-up care with urologist. 5. History Of Anemia Repeat iron studies and CBC to rule out anemia as a fatigue factor. During the visit, I discussed the patient's recent concerns of worsening bilateral leg weakness. I informed him of the possibility of a spinal pathology and advised an MRI of the lumbar spine to further investigate. We discussed his continued participation in physical therapy and its importance for maintaining strength and balance. I also introduced the need for a comprehensive blood work panel to evaluate systemic contributors to his symptoms, including hormone levels and metabolic indices, to ascertain potential causes of fatigue. I reassured him that all medications for blood pressure and urological incontinence were being managed appropriately but suggested continued home blood pressure monitoring for optimal control. I outlined the next steps for imaging and testing and emphasized early follow-up should any blood work or MRI findings show abnormalities. Orders: Orders MR lumbar spine wo con Today M54.9 - Dorsalgia, unspecified, R29.898 - Other symptoms and signs involving the musculoskeletal system C Reactive Protein Today Z00.00 - Encounter for general adult medical examination without abnormal findings Complete Blood Count Auto Diff Today Z00.00 - Encounter for general adult medical examination without abnormal findings Comprehensive [place]. Panel Fast Today Z00.00 - Encounter for general adult medical examination without abnormal findings Magnesium Today Z00.00 - Encounter for general adult medical examination without abnormal findings Dihydrotestosterone Today Z00.00 - Encounter for general adult medical examination without abnormal findings Vitamin B12 and Folate Today Z00.00 - Encounter for general adult medical examination without abnormal findings Hemoglobin A1c Today Z00.00 - Encounter for general adult medical examination without abnormal findings Lipid Panel Today Z00.00 - Encounter for general adult medical examination without abnormal findings IRON PROFILE Today D64.9 - Anemia, unspecified DHEA Sulfate Today Z00.00 - Encounter for general adult medical examination without abnormal findings Vitamin D 25-OH Total Today Z00.00 - Encounter for general adult medical examination without abnormal findings Testosterone, Free/Total Today Z00.00 - Encounter for general adult medical examination without abnormal findings Testosterone, Total Today Z00.00 - Encounter for general adult medical examination without abnormal findings TSH reflex Free T4 Today Z00.00 - Encounter for general adult medical examination without abnormal findings PSA,Total (Free>4and<10) Today Z00.00 - Encounter for general adult medical examination without abnormal findings Liver Panel Today Z00.00 - Encounter for general adult medical examination without abnormal findings Ferritin Today D64.9 - Anemia, unspecified Medications: New naproxen 500 mg PO BID 30 tabs 1RF Patient Instructions: - Continue with physical therapy twice a week. - Schedule an MRI appointment when contacted. - Monitor blood pressure at home regularly. - Attend blood work fasting; can have water or black coffee without cream or sugar. - Follow up sooner if MRI or blood work results are abnormal. - Report any new or worsening symptoms promptly. - Follow dietary recommendations and maintain current healthy breakfast regimen.
[2025-01-31 13:47] VITALS: BP 138/80; PULSE 65; TEMP 36.4; O2SAT 97
== END 2025-01-31 14:27 | disposition home or self-care (01) ==
LOC: HO.HMCSH 13:40
PROVIDERS: PCP Internal Medicine; Visit Provider Physician Assistant Medical
DX: Z76.89 Persons encountering health services in other specified circumstances (principal); I10 Essential (primary) hypertension; R29.898 Other symptoms and signs involving the musculoskeletal system; M54.9 Dorsalgia, unspecified; N52.9 Male erectile dysfunction, unspecified; D64.9 Anemia, unspecified; R32 Unspecified urinary incontinence

== ENCOUNTER → 2025-01-31 13:39 | Outpatient (BNVA) | payer MEDICARE, SELFPAY | PROVIDERS: PCP Internal Medicine; Visit Provider Physician Assistant Medical | DX: I10 Essential (primary) hypertension (principal); M54.50 Low back pain, unspecified; R29.898 Other symptoms and signs involving the musculoskeletal system; R53.1 Weakness; N52.9 Male erectile dysfunction, unspecified; D64.9 Anemia, unspecified; R32 Unspecified urinary incontinence; Z76.89 Persons encountering health services in other specified circumstances | CPT/HCPCS: 96127; 99202 ==

== ENCOUNTER 2025-02-04 08:14 | Outpatient (REF) | payer MEDICARE, SELFPAY ==
[2025-02-04 08:31] LABS: MANUAL DIFF FLAG NO
[2025-02-04 09:36] LABS: Basophils Percent Auto 0.7 % (0-2); Eosinophils Absolute Auto 0.2 X10*3/uL (0.0-0.4); Eosinophils Percent Auto 3.3 % (0-4); Hematocrit 40.8 % (42.0-52.0); Hemoglobin 14.2 g/dl (14.0-18.0); Imm Gran Abs Auto 0.02 X10*3/uL (0.00-0.03); Imm Gran Pct Auto 0.3 % (0.0-0.4); Lymphocytes Percent Auto 32.5 % (20-40); Mean Corpuscular HGB Conc 34.8 g/dl (31.0-36.0); Mean Corpuscular Hemoglobin 31.6 pg (27.0-33.0); Mean Corpuscular Volume 90.9 fL (80.0-98.0); Mean Platelet Volume 10.8 fL (9.4-12.4); Monocytes Absolute Auto 0.6 X10*3/uL (0.1-1.2); Neutrophils Absolute Auto 3.3 x10*3/uL (2.0-8.3); Neutrophils Percent Auto 54.2 % (45-73); Platelet Count 173 X10*3/uL (160-400); Red Blood Count 4.49 X10*6/uL (4.60-5.80); Red Cell Distribution Width 12.3 % (11.0-16.0); White Blood Count 6.1 X10*3/uL (4.8-10.8)
[2025-02-04 09:52] LABS: Estimated Average Glucose 114 mg/dL; Hemoglobin A1c % 5.6 % (<6.0); Total Hemoglobin (HGBA1C) 3659.5922 umol/L
[2025-02-04 10:14] LABS: Alanine Aminotransferase 20 U/L (0-40); Albumin Level 4.3 g/dL (3.5-5.0); Alkaline Phosphatase 42 U/L (39-117); Anion Gap 11 (12-20); Aspartate Amino Transferase 23 U/L (5-37); Bilirubin Direct 0.3 mg/dL (0.0-0.5); Bilirubin Total 0.8 mg/dL (0.0-1.0); Blood Urea Nitrogen 17 mg/dL (9-16); C Reactive Protein 0.12 mg/dL (< or = 0.50); Calcium 9.3 mg/dL (8.4-10.2); Carbon Dioxide 26 mmol/L (22-29); Chloride 107 mmol/L (96-108); Cholesterol 160 mg/dL (<200); Estimated Glomerular Filt Rate > 60; Glucose Fasting 91 mg/dL (60-99); HDL Cholesterol 55 mg/dL (>40); Iron 183 mcg/dL (45-160); LDL Cholesterol Calculated 87 mg/dL (<100); Magnesium 2.1 mg/dL (1.6-2.6); Percent Iron Saturation 67 % (15-50); Potassium 4.1 mmol/L (3.3-5.1); Sodium 140 mmol/L (135-145); Total Iron Binding Capacity 275 mcg/dL (228-428); Total Protein 7.1 g/dL (6.5-8.0); Triglycerides 90 mg/dL (<150); Unsaturated Iron Binding 92 ug/dL
[2025-02-04 10:18] LABS: Ferritin 184 ng/mL (20-250); TSH reflex Free T4 1.37 uIU/mL (0.32-4.0); Vitamin D 25-OH Total 26.9 ng/mL (>30)
[2025-02-04 10:19] LABS: PSA,Total (Free>4and<10) 0.43 ng/mL (0.00-4.00)
[2025-02-04 10:33] LABS: Vitamin B12 479 pg/mL (200-900)
[2025-02-06 00:43] LABS: DHEA Sulfate 60 mcg/dL (3-225)
[2025-02-10 07:13] LABS: Dihydrotestosterone 6 ng/dL (12-65)
[2025-02-22 12:54] LABS: Testosterone, Total 366 ng/dL (250-1100)
== END 2025-02-04 08:15 | disposition home or self-care (01) ==
LOC: HO.LAB 08:14
PROVIDERS: PCP Internal Medicine; Visit Provider Physician Assistant Medical
DX: Z00.00 Encounter for general adult medical examination without abnormal findings (principal); D64.9 Anemia, unspecified; Z12.5 Encounter for screening for malignant neoplasm of prostate; Z13.1 Encounter for screening for diabetes mellitus; Z13.6 Encounter for screening for cardiovascular disorders
CPT/HCPCS: 36415; 80053; 80061; 80076; 82248; 82306; 82607; 82627; 82642; 82728; 82746; 83036; 83540; 83735; 84153; 84402; 84403; 84443; 85025; 86140

== ENCOUNTER 2025-02-15 18:50 | Outpatient (REF) | payer MEDICARE, SELFPAY ==
--- NOTE | ~2025-02-15 | MR_ITS ---
EXAMINATION: MR LUMBAR SPINE WITHOUT CONTRAST CLINICAL INFORMATION: Dorsalgia, unspecified. COMPARISON: None available. TECHNIQUE: MRI of the lumbar spine was obtained using routine sequences without contrast. FINDINGS: Last rib-bearing vertebra labeled T12. No bone marrow STIR signal abnormality. Multilevel disc desiccation and marginal osteophyte formation. Bone marrow inhomogeneity. The alignment is normal. Conus medullaris ends at inferior endplate of L1 with normal signal. T11-12: No disc herniation. No neuroforamina stenosis. T12-L1: Disc bulging. Facet joint hypertrophy. No compression upon neural elements. L1-2: Broad-based disc bulging. Facet joint hypertrophy. No compression upon neural elements. L2-3: Broad-based disc bulging. Facet joint hypertrophy. Reduced AP diameter of the thecal sac and neuroforamina. No compression upon neural elements. L3-4: Broad-based disc bulging. Facet joint and ligamentum flavum hypertrophy. Reduced AP diameter of the thecal sac and neuroforamina likely encroaching the neural elements. L4-5: Broad-based disc bulging. Facet joint and ligamentum flavum hypertrophy. Reduced AP diameter of the thecal sac and neuroforamina likely encroaching the neural elements. L5-S1: Broad-based disc bulging. Facet joint hypertrophy. No central spinal canal stenosis. Bilateral neuroforamina narrowing. No prevertebral compartment hematoma, mass or fluid collection. MR/MR lumbar spine wo con IMPRESSION: Multilevel lumbar spondylosis more pronounced at L3-4 and L4-5 levels and to a lesser extent L5-S1 encroaching the exiting nerve roots. Electronically signed by: Joseph Gamble MD 02/16/2025 07:13 AM EDT
== END 2025-02-15 18:51 | disposition home or self-care (01) ==
LOC: HO.MRI 18:50
PROVIDERS: PCP Physician Assistant Medical; Visit Provider Physician Assistant Medical
DX: M54.9 Dorsalgia, unspecified (principal); R29.898 Other symptoms and signs involving the musculoskeletal system
CPT/HCPCS: 72148

== ENCOUNTER → 2025-02-15 18:51 | Outpatient (BNV) | payer MEDICARE, SELFPAY | PROVIDERS: PCP Physician Assistant Medical; Visit Provider Radiology Diagnostic Radiology | DX: M47.896 Other spondylosis, lumbar region (principal) | CPT/HCPCS: 72148 ==

== ENCOUNTER 2025-02-23 07:44 | Outpatient (REF) | payer MEDICARE, SELFPAY ==
[2025-03-01 19:29] LABS: Testosterone, Total 411 ng/dL (250-1100)
== END 2025-02-23 07:45 | disposition home or self-care (01) ==
LOC: HO.LAB 07:44
PROVIDERS: PCP Physician Assistant Medical; Visit Provider Physician Assistant Medical
DX: Z00.00 Encounter for general adult medical examination without abnormal findings (principal)
CPT/HCPCS: 36415; 84402; 84403

== ENCOUNTER 2025-02-27 12:54 | Outpatient (AMB) | payer MEDICARE, SELFPAY ==
--- NOTE | 2025-02-27 13:00 | HO.SPINEOV ---
Intake Visit Reasons: lumbar radiculopathy Intake Note: Mr. Baez is here today c/o low back pain. 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 He is a very nice 79-year-old gentleman presents to the office today for evaluation of 1 year of pain reported in his lower thoracic area. He has been taking a leave periodically to help with the symptoms. It comes and goes but generally gets worse if he is doing something active like washing the dishes. Has no tingling or numbness going down his legs. He does report weakness however when he is trying to get up off the floor. He has to hold onto something to get vertical. He does have urinary urgency and frequency, having to geta up 3 or 4 times a night, but no kristian incontinence. He comes in today for evaluation with a lumbar MRI showing some degenerative disc disease. 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 History of appendectomy. Denies any history of cardiopulmonary disease, strokes, renal disease, blood clots bleeding disorders or cancer. Social hx: He does not smoke drink or use any recreational drugs Medications: Valsartan, baby aspirin, Flomax, vitamin-C Allergies: None Physical exam: Awake alert oriented no acute distress able to stand up out of a chair walk down the hallway, tandem gait testing reveals slight unsteadiness, Romberg test negative, strength is full bilaterally in the lower extremities, somewhat brisk reflexes in the lower extremities, 3+ at the patella and he did have a 2 beats of clonus in his left ankle. He has an upgoing toe on the left as well. Imaging review: Lumbar MRI done here at [place] shows just some very mild degenerative disc disease without any evidence of stenosis or compromise of the neural structures. Impression: 79-year-old male presents with lower thoracic pain in the midline of his spine, some urinary urgency and frequency especially at night, and clonus in his left ankle with an upgoing toe. His lumbar MRIs unremarkable in fact that looks great for his age. There are no compression of any neural elements this. I am going to look up into his thoracic spine a little more closely just because of the physical exam findings in the complaints of urinary urgency. He has no upper extremity symptoms to report so I do not think a cervical MRI as necessary. Thank you for allowing us to care for your patient. The total time spent with this visit with this patient was 45 minutes reviewing history, physical exam, lumbar imaging review, and implementation of treatment plan or further diagnostic testing Rene Paris MD,PhD [facility] Orders: Orders MR thoracic spine wo con Today M54.9 - Dorsalgia, unspecified Coding Level of Care Code New Pt Level 4 (23579) Diagnoses Back pain M54.9
== END 2025-02-27 13:50 | disposition home or self-care (01) ==
LOC: HO.HNS 12:55
PROVIDERS: PCP Physician Assistant Medical; Visit Provider Physician Assistant
DX: M54.9 Dorsalgia, unspecified (principal)
CPT/HCPCS: 99204

== ENCOUNTER → 2025-02-27 12:54 | Outpatient (BNVA) | payer MEDICARE, SELFPAY | PROVIDERS: PCP Physician Assistant Medical; Visit Provider Physician Assistant | DX: M54.9 Dorsalgia, unspecified (principal) | CPT/HCPCS: 99202 ==

== ENCOUNTER 2025-03-08 13:44 | Outpatient (REF) | payer MEDICARE, SELFPAY ==
[2025-03-08 14:33] LABS: Alanine Aminotransferase 17 U/L (0-40); Albumin Level 4.5 g/dL (3.5-5.0); Alkaline Phosphatase 50 U/L (39-117); Aspartate Amino Transferase 21 U/L (5-37); Total Protein 7.2 g/dL (6.5-8.0)
[2025-03-08 15:07] LABS: Prostate Specific Antigen 0.98 ng/mL (<0.05-4.0)
[2025-03-17 03:42] LABS: FIB-ALT 13 U/L (9-46); FIB-Alpha-2-Macroglobulin 322 mg/dL (106-279); FIB-Apolipoprotein A1 177 mg/dL (94-176); FIB-GGT 12 U/L (3-70); FIB-Haptoglobin 94 mg/dL (43-212); FIB-Total Bilirubin 0.4 mg/dL (0.2-1.2); Liver Fibrosis Score 0.43; Liver Fibrosis Stage F1-F2; Nec Inflam Act Grade A0; Nec Inflam Act Score 0.05
== END 2025-03-08 13:45 | disposition home or self-care (01) ==
LOC: HO.LAB 13:44
PROVIDERS: Absent Provider Physician Assistant; PCP Physician Assistant Medical; Visit Provider Internal Medicine
DX: B18.2 Chronic viral hepatitis C (principal); K74.00 Hepatic fibrosis, unspecified
CPT/HCPCS: 36415; 80076; 81596; 82105; 84153

== ENCOUNTER 2025-03-21 14:16 | Outpatient (REF) | payer MEDICARE, SELFPAY ==
--- NOTE | ~2025-03-21 | MR_ITS ---
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 Additional syrinx noted from inferior T7 to T8-9 disc space. Study was performed without intravenous contrast. No cause of syrinx is identified. Recommend repeat study with IV contrast to assess the cord. Multilevel mild degenerative changes noted. No significant canal or neural foraminal narrowing. No acute bony signal abnormalities identified. Bone marrow heterogeneity is nonspecific finding. This can be seen with anemia as well as pulmonary disease. No significant bone marrow edema is identified. Posterior bony alignment is normal. 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
== END 2025-03-21 14:17 | disposition home or self-care (01) ==
LOC: HO.MRI 14:16
PROVIDERS: Visit Provider Physician Assistant
DX: M54.9 Dorsalgia, unspecified (principal)
CPT/HCPCS: 72146

== ENCOUNTER → 2025-03-21 14:33 | Outpatient (BNV) | payer MEDICARE, SELFPAY | PROVIDERS: Visit Provider Radiology Diagnostic Radiology | DX: M54.9 Dorsalgia, unspecified (principal) | CPT/HCPCS: 72146 ==

== ENCOUNTER 2025-04-05 15:15 | Outpatient (AMB) | payer MEDICARE, SELFPAY ==
--- NOTE | 2025-04-05 16:10 | A.SPINEOV_ITS ---
Intake Visit Reasons: discuss MRI Intake Note: Mr. Baez is here today to Discuss the results to his MRI. 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 His thoracic MRI shows that he has evidence of 2 syrinx in his thoracic cord. There does not appear to be any displacement of the spinal cord and there is no cord signal change. He does however have trouble walking, numbness and bladder issues with signs of hyperreflexia in the lower extremities. I reviewed the case with Dr. Paris. As per the radiologist request we are going to get studies with gadolinium, and we will also scan his cervical spine to rule out a Chiari malformation or other associated cervical cord syrinx as well as these can be commonly seen in conjunction with thoracic. Total amount of time spent in this visit was 20 minutes in discussion of symptoms, thoracic imaging results and subsequent plan of care Rene Paris MD,PhD [facility] Orders: Orders MR thoracic spine wo/w con Today G95.0 - Syringomyelia and syringobulbia MR cervical spine wo/w con Today G95.0 - Syringomyelia and syringobulbia Coding Level of Care Code Est Pt Level 3 (11642) Diagnoses Syrinx G95.0
== END 2025-04-05 16:52 | disposition home or self-care (01) ==
LOC: HO.HNS 15:15
PROVIDERS: Visit Provider Physician Assistant
DX: G95.0 Syringomyelia and syringobulbia (principal)
CPT/HCPCS: 99213

== ENCOUNTER → 2025-04-05 15:15 | Outpatient (BNVA) | payer MEDICARE, SELFPAY | PROVIDERS: Visit Provider Physician Assistant | DX: Z71.2 Person consulting for explanation of examination or test findings (principal); G95.0 Syringomyelia and syringobulbia | CPT/HCPCS: 99212 ==

== ENCOUNTER 2025-04-27 09:55 | Outpatient (REF) | payer MEDICARE, SELFPAY ==
--- NOTE | ~2025-04-27 | US_ITS ---
EXAMINATION: US COMPLETE ABDOMEN WITH LIVER ELASTOGRAPHY CLINICAL INFORMATION: Hepatitis C, hepatic fibrosis COMPARISON: March 21, 2024 TECHNIQUE: Real-time imaging of the abdominal viscera. Noninvasive ultrasound liver fibrosis assessment is performed using Jose Elast[employer] point quantification shear wave elastography (pSWE) with a C5-2 MHz transducer. Multiple elastography samples are obtained. FINDINGS: PANCREAS: The visualized pancreatic head and body are normal in appearance. The remainder of the pancreas is obscured from visualization by the overlying bowel gas. ABDOMINAL AORTA: No aortic aneurysm is seen. INFERIOR VENA CAVA: Visualized portions are normal. LIVER: The liver demonstrates a mildly coarse echotexture. No focal lesion or intrahepatic biliary duct dilatation. The right lobe measures 13 cm in length. The left lobe measures 9 cm in length. Portal flow is present in a normal direction with a continuous venous waveform. Shear wave liver elastography median stiffness is 1.5 m/s (reference: normal median stiffness is 1.3 m/s or less). IQR/median stiffness to assess sampling precision is 0.12 (reference: good quality data set is IQR/median stiffness of 0.15 or less). GALLBLADDER: The gallbladder is physiologically distended without evidence of stones, sludge, polyps, wall thickening or pericholecystic fluid. COMMON BILE DUCT: Normal in caliber measuring 0.4 cm in diameter. RIGHT KIDNEY: No hydronephrosis. No renal calculi or focal parenchymal lesions. The kidney measures 10 cm in maximum dimension. LEFT KIDNEY: No hydronephrosis. No renal calculi or focal parenchymal lesions. The kidney measures 10 cm in maximum dimension. SPLEEN: Unremarkable. The spleen measures 9 cm in maximum dimension. FREE FLUID: None seen. US/US abdomen comp w elastography IMPRESSION: Mildly coarse echotexture of the liver is consistent with mild fatty changes or hepatocellular disease. Liver elastography: Measurements are suggestive of compensated advanced chronic liver disease but need further test for confirmation. When compared with prior exam, there is a statistically significant decrease in liver stiffness (decrease at least 10%). REFERENCE: Society of [employer]iologists in Ultrasound Liver Stiffness Thresholds (2019): LIVER STIFFNESS THRESHOLDS: *Liver Stiffness equal or less than 1.3 m/s: High probability of being normal. *Liver Stiffness less than 1.7 m/s: In the absence of other known clinical signs, rules out compensated advanced chronic liver disease. *Liver Stiffness 1.7-2.1 m/s: Suggestive of compensated advanced chronic liver disease but need further test for confirmation. *Liver Stiffness over 2.1 m/s: Rules in compensated advanced chronic liver disease. *Liver Stiffness over 2.4 m/s: Suggestive of clinically significant portal hypertension. QUALITY OF DATA SET: *IQR/Median value equal or less than 0.15 implies a quality data set. *IQR/Median value over 0.15 implies a poor quality data set. SIGNIFICANT CHANGE FROM PRIOR EXAM: Significant change if liver stiffness measurement is 10% or greater from prior exam. OTHER CONSIDERATIONS: The stage of liver fibrosis may be overestimated in the setting of acute hepatitis, liver inflammation, elevated liver function tests, hepatic vascular congestion, obstructive cholestasis, non-fasting state, and infiltrative diseases such as amyloidosis and lymphoma. In some patients with NAFLD, the liver stiffness thresholds for compensated advanced chronic liver disease may be lower. In causes other than viral hepatitis and NAFLD, liver stiffness thresholds are not well established. Electronically signed by: Marco Maldonado MD 04/27/2025 10:51 AM EDT
[2025-04-27 15:35] LABS: MANUAL DIFF FLAG NO
[2025-04-27 15:48] LABS: Hematocrit 40.8 % (42.0-52.0); Hemoglobin 14.1 g/dl (14.0-18.0); Imm Gran Abs Auto 0.02 X10*3/uL (0.00-0.03); Imm Gran Pct Auto 0.2 % (0.0-0.4); Lymphocytes Absolute Auto 2.1 X10*3/uL (1.2-4.9); Mean Corpuscular HGB Conc 34.6 g/dl (31.0-36.0); Mean Corpuscular Hemoglobin 31.6 pg (27.0-33.0); Mean Corpuscular Volume 91.5 fL (80.0-98.0); NRBC Abs Auto 0.000 X10*3/uL (0.0-0.012); NRBC Pct Auto 0.0 /100WBC (0.0-0.2); Platelet Count 157 X10*3/uL (160-400); Red Blood Count 4.46 X10*6/uL (4.60-5.80); White Blood Count 8.1 X10*3/uL (4.8-10.8)
[2025-04-27 16:11] LABS: Alanine Aminotransferase 16 U/L (0-40); Albumin Level 4.3 g/dL (3.5-5.0); Alkaline Phosphatase 42 U/L (39-117); Anion Gap 11 (12-20); Aspartate Amino Transferase 22 U/L (5-37); Blood Urea Nitrogen 20 mg/dL (9-16); Calcium 9.2 mg/dL (8.4-10.2); Carbon Dioxide 28 mmol/L (22-29); Chloride 104 mmol/L (96-108); Estimated Glomerular Filt Rate > 60; Iron 100 mcg/dL (45-160); Percent Iron Saturation 40 % (15-50); Potassium 4.5 mmol/L (3.3-5.1); Sodium 138 mmol/L (135-145); Total Iron Binding Capacity 248 mcg/dL (228-428); Total Protein 6.9 g/dL (6.5-8.0); Unsaturated Iron Binding 148 ug/dL
[2025-04-27 16:25] LABS: Ferritin 139 ng/mL (20-250)
== END 2025-04-27 09:56 | disposition home or self-care (01) ==
LOC: HO.US 09:55
PROVIDERS: Internal Medicine Medical Oncology; Visit Provider Internal Medicine
DX: E83.19 Other disorders of iron metabolism (principal); B18.2 Chronic viral hepatitis C; K74.00 Hepatic fibrosis, unspecified
CPT/HCPCS: 36415; 76700; 76981; 80053; 82728; 83540; 85025

== ENCOUNTER → 2025-04-27 10:05 | Outpatient (BNV) | payer MEDICARE, SELFPAY | PROVIDERS: Visit Provider Radiology Diagnostic Radiology | DX: B18.2 Chronic viral hepatitis C (principal); K74.00 Hepatic fibrosis, unspecified | CPT/HCPCS: 76700 ==

== ENCOUNTER → 2025-04-27 13:00 | Outpatient (BNV) | payer MEDICARE, SELFPAY | PROVIDERS: Visit Provider Internal Medicine Medical Oncology | DX: Z86.39 Personal history of other endocrine, nutritional and metabolic disease (principal) | CPT/HCPCS: 99213 ==

== ENCOUNTER → 2025-05-12 17:49 | Outpatient (BNV) | payer MEDICARE, SELFPAY | PROVIDERS: Visit Provider Radiology Diagnostic Radiology | DX: M47.812 Spondylosis without myelopathy or radiculopathy, cervical region (principal); M48.02 Spinal stenosis, cervical region; M47.814 Spondylosis without myelopathy or radiculopathy, thoracic region | CPT/HCPCS: 72156; 72157 ==

== ENCOUNTER 2025-05-12 17:51 | Outpatient (REF) | payer MEDICARE, SELFPAY ==
--- NOTE | ~2025-05-12 | MR_ITS ---
EXAMINATION: MR THORACIC SPINE WITHOUT AND WITH CONTRAST CLINICAL INFORMATION: Syringomyelia and and syringobulbia COMPARISON: March 21, 2025 TECHNIQUE: MRI of the thoracic spine was obtained using routine sequences with and without contrast. Intravenous contrast: Gadolinium based 7.0 mL. No reported immediate complications FINDINGS: Patient's motion artifact. There is a fusiform shape, less than 2.5 mm maximal thickness, nonenhancing hyperintense T2 STIR cord signal abnormality extending from superior margin of T4 to the mid T6. There is a fusiform shape, less than 2 mm maximal thickness, nonenhancing hyperintense T2 STIR cord signal abnormality extending from T7-8 to mid T9 vertebral body. Bone marrow inhomogeneity. No abnormal enhancement within the thoracic spinal cord, central spinal canal or the prevertebral compartment. Multilevel marginal osteophyte formation and disc desiccation from T2-3 to T10-11. Grade 1 anterolisthesis T1 to and C7-T1 likely degenerative. Multilevel facet joint hypertrophy. No disc herniation or cord compression. No prevertebral compartment hematoma, mass or fluid collections.. MR/MR thoracic spine wo/w con IMPRESSION: Syrinx without abnormal enhancement versus prominent central spinal cord canal at T4 6 and T7 9. No herniated disc, cord compression or myelopathy. Multilevel spondylosis without cord compression or gross herniated disc. Electronically signed by: Joseph Gamble MD 05/15/2025 07:56 AM EDT
--- NOTE | ~2025-05-12 | MR_ITS ---
EXAMINATION: MR CERVICAL SPINE WITHOUT AND WITH CONTRAST CLINICAL INFORMATION: Syringomyelia and syringobulbia COMPARISON: None available. TECHNIQUE: MRI of the cervical spine was obtained using routine sequences with and without contrast. Intravenous contrast: Gadolinium based 7.0 mL. No reported immediate complications. FINDINGS: Craniocervical junction is intact. Normal position of the cerebellar tonsils. No bone marrow STIR signal abnormality. Bone marrow inhomogeneity. Multilevel disc desiccation. There is 20-30 % volume loss of the vertebral bodies without bone marrow STIR signal abnormality, pronounced at C6 there is a grade 1 anterolisthesis T1-T2 3. There is an anterior marginal osteophyte formation at C5-6, C6-7 and T3-4. There is a 1.5 mm hyperintense T2 STIR nonenhancing signal within the spinal cord of the upper thoracic spine, T4-5 no fully included in the [id number]. No abnormal enhancement within the cervical spinal cord, central spinal canal or the prevertebral compartment. 6 mm intrinsic hyperintense T1 signal in the right side of the vertebral bodies C7 probable small intraosseous hemangioma versus lipoma. C2-3: Right-sided disc osteophyte complex formation. Right neuroforamina narrowing on a degenerative basis. No cord compression. No cord signal abnormality. C3-4: Broad-based disc osteophyte compresses formation. No cord compression. No cord signal abnormality. Bilateral neuroforamina narrowing on a degenerative basis. C4-5: Broad-based disc osteophyte compresses formation resulting in ventral deformity of the spinal cord. No cord signal abnormality. Bilateral neuroforamina narrowing on a degenerative basis. C5-6: Broad-based disc osteophyte complex formation resulting in CSF effacement of the thecal sac and flattening of the spinal cord. No cord signal abnormality. Bilateral neuroforamina stenosis on a degenerative basis. C6-7: Broad-based disc osteophyte complex formation resulting in ventral deformity of the thecal sac. No cord compression. No cord signal abnormality. Right neuroforamina narrowing on a degenerative basis. C6-7: Broad-based disc osteophyte complex formation resulting in ventral deformity of the thecal sac. No cord compression. Bilateral neuroforamina narrowing. C7-T1: Broad-based disc osteophyte consummation. No cord compression. No neuroforamina stenosis. No prevertebral compartment hematoma, mass or fluid collection. Flow-void signal within the main vessels is normal. Codominant vertebral bodies. . MR/MR cervical spine wo/w con IMPRESSION: Multilevel cervical spondylosis from C2-3 to C6-7 resulting in central spinal canal stenosis at C4-5, C5-6 and C6-7 without cord edema and or myelopathy. No abnormal enhancement. Syrinx versus prominent central spinal cord canal, T4-5. Please refer to the MRI thoracic spine. Electronically signed by: Joseph Gamble MD 05/15/2025 07:22 AM EDT
== END 2025-05-12 17:52 | disposition home or self-care (01) ==
LOC: HO.MRI 17:51
PROVIDERS: Visit Provider Physician Assistant
DX: G95.0 Syringomyelia and syringobulbia (principal)
CPT/HCPCS: 72156; 72157; A9585

== ENCOUNTER 2025-08-01 13:08 | Outpatient (AMB) | payer MEDICARE, SELFPAY ==
--- NOTE | 2025-08-01 13:09 | MHC.PC.OV ---
Vital Signs 08/01/25 13:11 08/01/25 14:01 Height 5 ft 6 in Weight 149 lb 0.4 oz BMI 24.1 BP 156/69 H 130/50 L Blood Pressure Location Rt brachial Pulse 67 Pulse Source Pulse Oximeter Temp 97.1 F Pulse Oximetry (%) 99 Intake Visit Reasons: 6 month f/u Intake Note: no issues Allergies No Known Allergies (No Known Allergies*) Allergy (Unknown, Verified 08/01/25 13:24) Medication List - Last Reconciled 08/01/25 by Claudine Maya PA-C amlodipine 5 mg PO DAILY aspirin 81 mg PO DAILY cholecalciferol (vitamin D3) 50 mcg PO DAILY [id number] mcg (Centrum Silver Men) 1 tab PO DAILY naproxen 500 mg PO BID tadalafil (Cialis) 20 mg PO DAILY tamsulosin 0.8 mg (2 x 0.4 mg) PO DAILY 90 days valsartan 160 mg PO DAILY Dental Screening Dental Screen Date: 08/01/25 Did you have a dental visit in the last 12 months?: Yes Did you have a dental problem in the last 6 months where you did not have access to dental care?: No Was dental information given to patient?: Patient has dentist HPI HPI Comments History of Present Illness Details History of Present Illness The patient is a 80 year old individual presenting for a six-month follow-up for chronic condition management. The patient manages hypertension with valsartan 160 mg and amlodipine 5 mg and follows up with cardiology annually in June. A recent home blood pressure reading was 136/64 mmHg, and the patient's average systolic and diastolic pressures are 130 mmHg and 64 mmHg, respectively. The patient has a history of back and neck pain with an associated seizure-like event, which prompted an MRI of the thoracic and lumbar spine. 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 A subsequent cervical spine MRI showed multilevel cervical spondylosis from C2 to C7 with central spinal canal stenosis; the patient is scheduled for a follow-up with neurospine in six months. Recent lab work from June 26, ordered by another provider, revealed hyperkalemia with a potassium level of 5.4 mEq/L. Labs in March showed transient anemia and thrombocytopenia, both of which have since resolved. The vitamin B12 level in March was 409 pg/mL, which is in the low-normal range, and the HbA1c was 5.6%, indicating prediabetes. The patient is followed for liver fibrosis with yearly ultrasounds, with the most recent showing mild fatty changes but a significant decrease in liver stiffness. Current medications include tamsulosin 0.4 mg twice daily, sildenafil 20 mg as needed, aspirin 81 mg, vitamin D, and vitamin C. The last colonoscopy was several years ago. Social History - The patient's son was discussed in the context of becoming a new patient at the practice, pending insurance compatibility. FOR[facility]LY [facility] Medical History (Updated 08/01/25 @ 14:04 by Claudine Maya PA-C) Healthcare maintenance Hyperkalemia Lumbar spondylosis Iron overload Urinary incontinence Anemia Establishing care with new doctor, encounter for Bilateral leg weakness Back pain Herpes zoster without complications Appendicitis Carcinoid (except of appendix) Chronic hepatitis HTN (hypertension) Hypogonadism in male Erectile dysfunction Other obstructive and reflux uropathy Benign prostatic hyperplasia with lower urinary tract symptoms Surgical History H/O right hemicolectomy H/O hernia repair Maidens teeth removed History of appendectomy History of vasectomy History of surgery Family History Father Cancer of kidney Social History Household Members: Spouse and Family Housing: House 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 1. Little interest or pleasure in doing things: not at all 2. Feeling down, depressed, or hopeless: not at all 3. Trouble falling or staying asleep, or sleeping too much: not at all 4. Feeling tired or having little energy: several days 5. Poor appetite or overeating: not at all 6. Feeling bad about yourself - or that you are a failure or have let yourself or your family down: not at all 7. Trouble concentrating on things, such as reading the newspaper or watching television: several days 8. Moving or speaking so slowly that other people could have noticed. Or the opposite - being so fidgety or restless that you have been moving around a lot more than usual: not at all 9. Thoughts that you would be better off or of hurting yourself in some way: not at all Total score: 2 Depression Screening Interpretation: Negative Depression Screening Done: Yes 52014 - PHQ-9 Billing: Yes Source: Developed by Drs. Luca Rhodes, Baylee Kemp, Jose Roberto Glass and colleagues, with an educational susie from [employer] Thrive Questionnaire Date Thrive assessed: 01/31/25 I am a: Patient What is your living situation today?: I have a steady place to live Within the past 12 months, did the food you bought not last and you didn't have the money to get more?: Never true Within the past 12 months, did you worry whether your food would run out before you got money to buy more?: Never true Do you have trouble paying for medicines?: No Do you have trouble getting transportation to medical appointments?: No Do you have trouble paying your heating and electricity bill?: No Do you have trouble taking care of your child, family member or friend?: No Do you have trouble with day-to-day activities such as bathing, preparing meals, shopping, managing finances, etc.?: No Are you currently unemployed and looking for a job?: No Are you interested in more education?: No THRIVE Score: 0 AUDIT C Alcohol Use Questionnaire (AUDIT-C) 2. How many drinks containing alcohol do you have on a typical day when you are drinking?: 1 or 2 3. How often do you have six or more drinks on one occasion?: Never Total Score: 0 Score Reviewed/Action Taken: No MEL-7 AMB Questionnaire MEL-7 Date MEL - 7 assessed: 01/31/25 Feeling nervous, anxious, or on edge: 0 = Not at all Not being able to stop or control worryin = Not at all Worrying too much about different things: 0 = Not at all Trouble relaxin = Not at all Being so restless that it is hard to sit still: 0 = Not at all Becoming easily annoyed or irritable: 1 = Several days Feeling afraid as if something awful might happen: 0 = Not at all Total MEL-7 score (0-4 normal; 5-9 mild; 10-14 moderate; 15-21 severe): 1 Source: Developed by Drs. Luca Rhodes, Baylee Kemp, Jose Roberto Glass and colleagues, with an educational susie from [employer] MEL-7 Assessment Billing MEL-7 Assessment Tool: MEL-7 Assessment 18475 Review of Systems Narrative Review of Systems - Neurological: Reports trouble walking, numbness, and bladder issues. - Musculoskeletal: Reports occasional cramps. - Gastrointestinal: Denies black or bloody stools. - Constitutional: Denies unintentional weight loss. Const All systems reviewed & are unremarkable except as noted in HPI and below Physical exam (Primary Care) Vital Signs: Last Vital Signs Temp 97.1 F 08/01/25 13:11 Pulse 67 08/01/25 13:11 BP 156/69 H 08/01/25 13:11 Pulse Ox 99 08/01/25 13:11 Care Plan Goal for BP management: <140/90 at Goal BMI result Body Mass Index 24.1 Normal BMI Tobacco/Smoking Status: Tobacco use Status Patient Tobacco Use Status Former Tobacco user 08/01/25 13:11 Tobacco use type Cigarette 08/01/25 13:11 PHQ-9: PHQ-9 Score PHQ-9: Total score 2 08/01/25 13:19 Depression Screening Interpretation: Negative Thrive Assessment: Date of Thrive Assessment Date Thrive assessed 01/31/25 08/01/25 13:11 Narrative Physical Exam Appearance: Alert. Oriented X3. No acute distress. Head: Normal external exam. Normocephalic. Atraumatic. Eyes: Pupils are equal, round, and reactive to light. Extraocular movements intact. Conjunctiva and sclera normal. Eyelids normal. Ears: External auditory canal normal. Tympanic membranes normal. Throat: Pharynx normal. Uvula midline. Moist mucous membranes. Neck: Normal inspection. Neck supple. Full range of motion. Cardiovascular: Normal heart rate and rhythm. Heart sound normal. Murmur noted. Pulses normal throughout. Respiratory: No respiratory distress. Painless inspiration. Breath sounds normal. No wheezes/rales/rhonchi noted. Chest nontender. No accessory muscle usage noted or decreased air movement noted. Back: Full range of motion noted. Skin: Skin warm and dry. Normal skin color. Normal skin turgor. No rashes/lesions/lacerations noted. Extremities: No lower extremity edema. Extremities exhibit normal range of motion. Neuro: Oriented X 3. No motor deficit. No sensory deficit. Reflexes normal. Office Procedures Flu Questionnaire Does the patient have a severe egg allergy?: No Does the patient have severe life threatening allergies?: No Does the patient have a fever or illness today?: No Has the patient ever had Guillain-Garretson Syndrome?: No Has the patient ever had any past reaction to a flu shot?: No Immunizations Fluarix [id number] (PF) 45 mcg (15 mcg x 3)/0.5 mL IM syringe Performing Provider: Claudine Maya PA-C [facility] Administered by: MARIBELL Sam on 08/01/25 13:21 Dose Route Admin Location Dispensed Lot Number Expiration Date NDC Snuff Grinder 0.5 mL IM Left Deltoid 0.5 mL [id number] 03/06/26 [id number] [employer] VIS Given Date VIS Provided VIS Publication Date 08/01/25 Single Vaccine 24 Eligibility Eligibility Date Funding Source Not [facility] Eligible 08/01/25 Private Results Reviewed Results Reviewed: Results - Labs: - CBC (March): Revealed a transient anemia that has since resolved. - Platelets (April): Showed a low count that normalized by June. - BMP (June 26): Potassium was elevated at 5.4 mEq/L; kidney function was normal. - Vitamin B12 (March): 409 pg/mL (normal 200-900). - HbA1c: 5.6%. - Other labs (March): Folate, total testosterone, TSH, calcium, magnesium, iron, ferritin, and liver enzymes were all normal. - Imaging: - Thoracic/Lumbar Spine MRI: Showed two syrinxes at T4-6 and T7-9, and multilevel spondylosis without cord compression. - Cervical Spine MRI: Showed multilevel cervical spondylosis (C2-C7) with central spinal canal stenosis without cord edema or myelopathy. - Liver Ultrasound/Elastography: Mild coarse echo texture of the liver consistent with mild fatty changes or hepatocellular disease. Suggestive of compensated advanced chronic liver disease, with a statistically significant decrease in liver stiffness from the prior study. Coding Level of Care Code Est Pt Level 4 (25578) Complex visit Add On G2211 Diagnoses HTN (hypertension) I10 Hyperkalemia E87.5 Syrinx G95.0 Chronic hepatitis K73.9 Healthcare maintenance Z00.00 Additional Codes MEL-7 Assessment Billing - MEL-7 Assessment Tool: MEL-7 Assessment 66217 ([id number]) PHQ-9 - 26925 - PHQ-9 Billing: Yes ([id number]) Time Spent (min) 60 Assessment & Plan Assessment & Plan (1) HTN (hypertension): Code(s): I10 - Essential (primary) hypertension Category: Medical Plan: The patient's blood pressure is managed with valsartan 160mg, which was refilled, and amlodipine 5mg. In-office manual blood pressure was 130/50 mmHg, consistent with the patient's chronically low diastolic pressure, which is attributed to diastolic dysfunction and an audible heart murmur. The patient will continue annual follow-up with cardiology. A request will be sent to the wax pattern repairer's office to obtain recent records. (2) Hyperkalemia: Code(s): E87.5 - Hyperkalemia Category: Medical Plan: A recent lab result from another provider showed an elevated potassium of 5.4 mEq/L. The risks of hyperkalemia, including potential cardiac damage, were discussed. A non-fasting blood draw was ordered to recheck potassium and magnesium levels. (3) Syrinx: Code(s): G95.0 - Syringomyelia and syringobulbia Category: Medical Plan: The patient has known diagnoses of thoracic syrinx and multilevel cervical/thoracic spondylosis with canal stenosis, causing symptoms of gait difficulty, numbness, and bladder issues. The patient is under the care of a neurospine specialist and will continue to follow up as recommended, with the next visit scheduled in six months. (4) Chronic hepatitis: Comment: in remission Code(s): K73.9 - Chronic hepatitis, unspecified Category: Medical Plan: The patient has chronic liver disease with fatty changes, which is being monitored with yearly ultrasounds by a specialist. Recent imaging showed improvement in liver stiffness. No change in management at this time; continue surveillance. (5) Healthcare maintenance: Code(s): Z00.00 - Encounter for general adult medical examination without abnormal findings Category: Medical Plan: The patient received an influenza vaccine during the visit. The patient is due for an annual physical exam. A follow-up appointment is scheduled in six months, which will serve as the annual physical exam. Blood work will be ordered prior to the next visit. Plan Plan Patient was informed and verbally consented to the use of an ambient scribe for clinic note documentation during this visit. 1. Essential Hypertension The patient's blood pressure is managed with valsartan 160mg, which was refilled, and amlodipine 5mg. In-office manual blood pressure was 130/50 mmHg, consistent with the patient's chronically low diastolic pressure, which is attributed to diastolic dysfunction and an audible heart murmur. The patient will continue annual follow-up with cardiology. A request will be sent to the wax pattern repairer's office to obtain recent records. 2. Hyperkalemia A recent lab result from another provider showed an elevated potassium of 5.4 mEq/L. The risks of hyperkalemia, including potential cardiac damage, were discussed. A non-fasting blood draw was ordered to recheck potassium and magnesium levels. 3. Thoracic Syrinx And Cervical/Thoracic Spondylosis The patient has known diagnoses of thoracic syrinx and multilevel cervical/thoracic spondylosis with canal stenosis, causing symptoms of gait difficulty, numbness, and bladder issues. The patient is under the care of a neurospine specialist and will continue to follow up as recommended, with the next visit scheduled in six months. 4. Low-Normal Vitamin B12 Level A previous vitamin B12 level was on the low side of normal at 409 pg/mL. The patient was advised to start taking a daily multivitamin containing B12. 5. Chronic Liver Disease The patient has chronic liver disease with fatty changes, which is being monitored with yearly ultrasounds by a specialist. Recent imaging showed improvement in liver stiffness. No change in management at this time; continue surveillance. 6. Health Maintenance The patient received an influenza vaccine during the visit. The patient is due for an annual physical exam. A follow-up appointment is scheduled in six months, which will serve as the annual physical exam. Blood work will be ordered prior to the next visit. Discussion Notes I reviewed the patient's chronic conditions, including hypertension, which appears well-controlled on current medication. We discussed the recent lab finding of hyperkalemia (5.4 mEq/L), and I explained the importance of rechecking this level due to the potential risk to the heart, ordering a non-fasting blood draw for potassium and magnesium. We also reviewed the MRI findings of thoracic syrinx and cervical spondylosis, confirming the plan to follow up with neurospine in six months. I recommended the patient take a multivitamin for a low-normal B12 level. I provided a form for the patient to request medical records from the wax pattern repairer to ensure continuity of care. A follow-up appointment was scheduled for six months, which will serve as the patient's annual physical exam, with labs to be ordered prior to that visit. Orders: Orders Basic Metabolic Panel Today Z00.00 - Encounter for general adult medical examination without abnormal findings Magnesium Today Z00.00 - Encounter for general adult medical examination without abnormal findings Influenza [id number] Immunization Today Z23 - Encounter for immunization Patient Instructions: Patient Instructions - Please go for blood work soon to recheck your potassium level. You do not need to fast for this test. - Start taking a daily multivitamin that contains Vitamin B12. - Continue all your current medications as prescribed. Your prescription for valsartan has been refilled. - Follow up with your analysis specialist in six months as planned. - Your next appointment in this office will be in six months for your annual physical exam. - Please give the bowling or skating front desk clerk the contact information for your heart doctor so we can request your medical records.
[2025-08-01 13:11] VITALS: BP 156/69; PULSE 67; TEMP 36.2; O2SAT 99; BMI 24.1
[2025-08-01 14:01] VITALS: BP 130/50
== END 2025-08-01 13:53 | disposition home or self-care (01) ==
PROVIDERS: PCP Physician Assistant Medical; Visit Provider Physician Assistant Medical
DX: I10 Essential (primary) hypertension (principal); E87.5 Hyperkalemia; G95.0 Syringomyelia and syringobulbia; K73.9 Chronic hepatitis, unspecified; Z00.00 Encounter for general adult medical examination without abnormal findings; Z23 Encounter for immunization

== ENCOUNTER → 2025-08-01 13:08 | Outpatient (BNVA) | payer MEDICARE, SELFPAY | PROVIDERS: PCP Physician Assistant Medical; Visit Provider Physician Assistant Medical | DX: Z00.00 Encounter for general adult medical examination without abnormal findings (principal); I10 Essential (primary) hypertension; M54.2 Cervicalgia; M54.9 Dorsalgia, unspecified; E87.5 Hyperkalemia; E78.5 Hyperlipidemia, unspecified; G95.0 Syringomyelia and syringobulbia; K73.9 Chronic hepatitis, unspecified; E53.8 Deficiency of other specified B group vitamins; Z23 Encounter for immunization | CPT/HCPCS: 90471; 90656; 96127; 99212 ==

== ENCOUNTER 2025-08-02 11:04 | Outpatient (REF) | payer MEDICARE, SELFPAY ==
[2025-08-02 12:24] LABS: Anion Gap 9 (12-20); Blood Urea Nitrogen 17 mg/dL (9-16); Calcium 9.8 mg/dL (8.4-10.2); Carbon Dioxide 30 mmol/L (22-29); Chloride 103 mmol/L (96-108); Estimated Glomerular Filt Rate > 60; Magnesium 2.0 mg/dL (1.6-2.6); Potassium 4.6 mmol/L (3.3-5.1); Sodium 137 mmol/L (135-145)
== END 2025-08-02 11:05 | disposition home or self-care (01) ==
LOC: HO.LAB 11:04
PROVIDERS: PCP Physician Assistant Medical; Visit Provider Physician Assistant Medical
DX: Z00.00 Encounter for general adult medical examination without abnormal findings (principal)
CPT/HCPCS: 36415; 80048; 83735